=== PATIENT | male | born 1980 | race Caucasian/White ===

== ENCOUNTER 2018-01-12 09:07 | Emergency (ER) | payer MEDICAID, SELFPAY ==
[2018-01-12 09:18] VITALS: BP 153/91; PULSE 79; RESP 16; TEMP 37; O2SAT 97
--- NOTE | 2018-01-12 09:33 | W.ED.GENAD ---
Discharge Plan Disposition Patient Disposition: HOME Condition: Good Discharge Details Chief Complaint: Orthopedic Clinical Impression: Pain in right knee ED Provider: Flavio Grullon Home Meds and New Rx's Prescriptions: Continue citalopram 20 mg Tablet 20 mg PO BID RF: 0 lamotrigine 100 mg Tablet 100 mg PO DAILY RF: 0 Arpiprazole 20 mg PO DAILY RF: 0 lamotrigine 150 mg Tablet 150 mg PO .QHS RF: 0 Discharge Instructions Instructions: Knee Pain (ED), RICE Therapy (ED) Additional Instructions: For discomfort you may take 650 mg of acetaminophen and 600 mg of ibuprofen in combination every 6 hours as needed for discomfort. Please rest the extremity over the next 24-48 hours and then slowly advance activity as tolerated. Please wear the hinged knee brace during activity over the next 2 weeks but you may take it off at times of rest or for sleep. If not improving over the next 2 weeks please call orthopedist for reassessment Referrals: Ap Maynard MD [ [facility] STAFF PHYSICIAN] - Aris Staley MD [ [facility] STAFF PHYSICIAN] - Jesus Hutchison MD [ [facility] STAFF PHYSICIAN] - Medical Decision Making Patient presenting to the emergency department with chief complaint of right knee pain. Patient states that he had been helping a friend clean and had been bent on his knees quite a bit when he noticed his right knee starting to hurt. Patient does state previous meniscal injury with continuous clicking of his right knee. Physical exam shows medial joint line tenderness and pain with valgus stress test and only mild tenderness to rotation medially with Apley's test otherwise exam is unremarkable and patient denies any injury or trauma. Patient is ambulatory without significant gait disturbance I do not feel that radiological imaging of the knee is required. I feel that this knee pain is caused from previous meniscal injury and recent aggravation due to deep bending. Patient was placed in a hinged knee brace and informed on [id number] pain therapy use as he states that he has been improving over the last 24 hours just using acetaminophen. Patient was informed to call orthopedic office if not improving over the next 2 weeks for reassessment and further imaging if required. After discussion of diagnosis and plan of care patient has no further needs, questions, or concerns and states clear understanding to return to the emergency department for any worsening symptoms. HPI General Mode of arrival: ambulatory. Date/Time Provider Initiated Documentation: 01/12/18 09:23. Limitations to Documentation: no limitations. Information obtained by: patient. History of Present Illness 37 year old M presents to the emergency department with the chief complaint of Right knee pain, described as mild, with intensity rated at 4. Quality is described as aching, and is localized to the right and lower extremity. Patient reports no radiation. Patient started experiencing this day(s) (5) and it has been constant (but improving). Rest improves symptom(s), Movement worsens symptoms . Patient notes no other symptoms.. Patient did receive the following treatments prior to arrival, other (Acetaminophen) Related Data Home Medications Medication Instructions Recorded Confirmed Arpiprazole 20 mg PO DAILY 01/12/18 citalopram 20 mg PO BID 01/12/18 01/12/18 lamotrigine 100 mg PO DAILY 01/12/18 01/12/18 lamotrigine 150 mg PO .QHS 01/12/18 01/12/18 Allergies Allergy/AdvReac Type Severity Reaction Status Date / Time No Known Allergies Allergy Unverified 01/12/18 09:20 General Stated Complaint: Orthopedic BRISEIDA: 4 Review of Systems Constitutional Denies frequent falls Cardiovascular Denies syncope Musculoskeletal Reports as per HPI, Denies numbness and Denies tingling Neurologic Denies syncope, Denies frequent falls, Denies numbness and Denies tingling PFSH Social History Smoking/Tobacco Use Status: Never Surgical History H/O lateral meniscus repair of right knee (Acute) Exam Const General: cooperative, healthy appearing and no acute distress Orientation: alert, awake and oriented x3 Resp Effort & Inspection: normal respiratory effort and able to speak in complete sentences Cardio Rate: regular rate Rhythm: regular rhythm Extrem Right lower extremity: hip/thigh Details: normal to inspection, knee Details: normal to inspection, tenderness Location: of the medial joint line, normal ROM, knee ligament exam abnormal Details: valgus stress test normal Details: pain noted and varus stress test normal Details: laxity noted; no pain with axial loading and Carlos's test abnormal and Apley's Test Details: positive (With pain elicited to medial aspect); no ecchymosis and no unusual warmth and lower leg Details: normal to inspection Left lower extremity: normal to inspection Course Vital Signs Temperature 37 C 01/12/18 09:18 Pulse 79 01/12/18 09:18 Respiratory Rate 16 01/12/18 09:18 Blood Pressure 153/91 H 01/12/18 09:18 Pulse Oximetry 97 01/12/18 09:18 Temperature 37 C 01/12/18 09:18 Temperature Source Skin 01/12/18 09:18 Pulse 79 01/12/18 09:18 Respiratory Rate 16 01/12/18 09:18 Respiratory Effort 01/12/18 09:18 Blood Pressure 153/91 H 01/12/18 09:18 Blood Pressure Position Sitting 01/12/18 09:18 Pulse Oximetry 97 01/12/18 09:18 Oxygen Delivery Method Room Air 01/12/18 09:18 Oxygen Flow Rate 0 01/12/18 09:18 Pain Level 5 01/12/18 09:18
--- NOTE | 2018-01-12 09:42 | ED.GENADUL_ITS ---
Discharge Plan Disposition Patient Disposition: HOME Condition: Good Discharge Details Chief Complaint: Orthopedic Clinical Impression: Pain in right knee ED Provider: Flavio Grullon Home Meds and New Rx's Prescriptions: Continue citalopram 20 mg Tablet 20 mg PO BID RF: 0 lamotrigine 100 mg Tablet 100 mg PO DAILY RF: 0 Arpiprazole 20 mg PO DAILY RF: 0 lamotrigine 150 mg Tablet 150 mg PO .QHS RF: 0 Discharge Instructions Instructions: Knee Pain (ED), RICE Therapy (ED) Additional Instructions: For discomfort you may take 650 mg of acetaminophen and 600 mg of ibuprofen in combination every 6 hours as needed for discomfort. Please rest the extremity over the next 24-48 hours and then slowly advance activity as tolerated. Please wear the hinged knee brace during activity over the next 2 weeks but you may take it off at times of rest or for sleep. If not improving over the next 2 weeks please call orthopedist for reassessment Referrals: Ap Maynard MD [ [facility] STAFF PHYSICIAN] - Aris Staley MD [ [facility] STAFF PHYSICIAN] - Jesus Hutchison MD [ [facility] STAFF PHYSICIAN] - Medical Decision Making Patient presenting to the emergency department with chief complaint of right knee pain. Patient states that he had been helping a friend clean and had been bent on his knees quite a bit when he noticed his right knee starting to hurt. Patient does state previous meniscal injury with continuous clicking of his right knee. Physical exam shows medial joint line tenderness and pain with valgus stress test and only mild tenderness to rotation medially with Apley's test otherwise exam is unremarkable and patient denies any injury or trauma. Patient is ambulatory without significant gait disturbance I do not feel that radiological imaging of the knee is required. I feel that this knee pain is caused from previous meniscal injury and recent aggravation due to deep bending. Patient was placed in a hinged knee brace and informed on over-the- counter pain therapy use as he states that he has been improving over the last 24 hours just using acetaminophen. Patient was informed to call orthopedic office if not improving over the next 2 weeks for reassessment and further imaging if required. After discussion of diagnosis and plan of care patient has no further needs, questions, or concerns and states clear understanding to return to the emergency department for any worsening symptoms. HPI General Mode of arrival: ambulatory . Date/Time Provider Initiated Documentation: 01/12/18 09:23 . Limitations to Documentation: no limitations . Information obtained by: patient . History of Present Illness 37 year old M presents to the emergency department with the chief complaint of Right knee pain, described as mild, with intensity rated at 4. Quality is described as aching, and is localized to the right and lower extremity. Patient reports no radiation. Patient started experiencing this day(s) (5) and it has been constant (but improving). Rest improves symptom(s), Movement worsens symptoms . Patient notes no other symptoms.. Patient did receive the following treatments prior to arrival, other (Acetaminophen) Related Data Home Medications Medication Instructions Recorded Confirmed Arpiprazole 20 mg PO DAILY 01/12/18 citalopram 20 mg PO BID 01/12/18 01/12/18 lamotrigine 100 mg PO DAILY 01/12/18 01/12/18 lamotrigine 150 mg PO .QHS 01/12/18 01/12/18 Allergies Allergy/AdvReac Type Severity Reaction Status Date / Time No Known Allergies Allergy Unverified 01/12/18 09:20 General Stated Complaint: Orthopedic BRISEIDA: 4 Review of Systems Constitutional Denies frequent falls Cardiovascular Denies syncope Musculoskeletal Reports as per HPI, Denies numbness and Denies tingling Neurologic Denies syncope, Denies frequent falls, Denies numbness and Denies tingling PFSH Social History Smoking/Tobacco Use Status: Never Surgical History H/O lateral meniscus repair of right knee (Acute) Exam Const General: cooperative, healthy appearing and no acute distress Orientation: alert, awake and oriented x3 Resp Effort & Inspection: normal respiratory effort and able to speak in complete sentences Cardio Rate: regular rate Rhythm: regular rhythm Extrem Right lower extremity: hip/thigh Details: normal to inspection, knee Details: normal to inspection, tenderness Location: of the medial joint line, normal ROM , knee ligament exam abnormal Details: valgus stress test normal Details: pain noted and varus stress test normal Details: laxity noted; no pain with axial loading and Carlos's test abnormal and Apley's Test Details: positive (With pain elicited to medial aspect); no ecchymosis and no unusual warmth and lower leg Details: normal to inspection Left lower extremity: normal to inspection Course Vital Signs Temperature 37 C 01/12/18 09:18 Pulse 79 01/12/18 09:18 Respiratory Rate 16 01/12/18 09:18 Blood Pressure 153/91 H 01/12/18 09:18 Pulse Oximetry 97 01/12/18 09:18 Temperature 37 C 01/12/18 09:18 Temperature Source Skin 01/12/18 09:18 Pulse 79 01/12/18 09:18 Respiratory Rate 16 01/12/18 09:18 Respiratory Effort 01/12/18 09:18 Blood Pressure 153/91 H 01/12/18 09:18 Blood Pressure Position Sitting 01/12/18 09:18 Pulse Oximetry 97 01/12/18 09:18 Oxygen Delivery Method Room Air 01/12/18 09:18 Oxygen Flow Rate 0 01/12/18 09:18 Pain Level 5 01/12/18 09:18
== END 2018-01-12 10:11 | disposition home or self-care (01) ==
LOC: ER 10:15
PROVIDERS: Emergency Provider Nurse Practitioner Family
DX: M25.561 Pain in right knee (principal); X50.3XXA Overexertion from repetitive movements, initial encounter
CPT/HCPCS: 29505; 99283; L1810

== ENCOUNTER 2018-02-02 08:05 | Outpatient (CLI) | payer MEDICAID, SELFPAY ==
[2018-02-02 09:02] LABS: Anion Gap 11.2 mmol/L (3-11); BUN 15 mg/dL (7-18); CO2 26.8 mmol/L (21.0-32.0); CREATININE 1.14 mg/dL (0.70-1.30); Calcium 9.2 mg/dL (8.5-10.1); Chloride 104 mmol/L (98-107); Cholesterol 252 mg/dL (50-200); Glucose 99 mg/dL (70-100); HDL Cholesterol 36 mg/dL (40-60); LDL CHOLESTEROL 138 mg/dL (<100); Potassium 4.1 mmol/L (3.5-5.1); Sodium 142 mmol/L (136-145); Triglyceride 423 mg/dL (30-150)
== END 2018-02-02 08:25 ==
PROVIDERS: Visit Provider Psychiatry & Neurology Psychiatry
DX: F31.9 Bipolar disorder, unspecified (principal); Z79.899 Other long term (current) drug therapy
CPT/HCPCS: 36415; 80048; 80061; 83721

== ENCOUNTER 2018-02-04 06:56 | Emergency (ER) | payer MEDICAID, SELFPAY ==
[2018-02-04 07:01] VITALS: BP 134/92; PULSE 93; RESP 18; TEMP 36.6; O2SAT 96
--- NOTE | 2018-02-04 07:32 | W.ED.GENAD ---
Discharge Plan Disposition Patient Disposition: HOME Condition: Good Discharge Details Chief Complaint: Orthopedic Clinical Impression: Pain in right knee Primary Care Provider: None,None ED Provider: Frank Cristobal Meds and New Rx's Prescriptions: New naproxen 500 mg tablet 500 mg PO BID PRN (Reason: pain) Qty: 20 RF: 0 Continue citalopram 20 mg Tablet 20 mg PO BID RF: 0 lamotrigine 100 mg Tablet 100 mg PO DAILY RF: 0 Arpiprazole 20 mg PO DAILY RF: 0 lamotrigine 150 mg Tablet 150 mg PO .QHS RF: 0 Discharge Instructions Additional Instructions: You will need to follow-up with orthopedics for further evaluation of your knee pain. An MRI cannot be ordered from the ED. Continue to wear knee brace. Continue to use ice. May try Naprosyn for the pain. Return to ED for fever, acute injury, neurologic changes. Referrals: [facility] [Provider Group] Medical Decision Making Patient returns with continued right knee pain. Explained to patient that he needs to follow-up with orthopedics for further evaluation. MRI cannot be ordered from the ED. Does not need plain films. He remains neurovascularly intact. He is requesting prescription for Naprosyn as it has worked better for him in the past. States he will follow-up with orthopedic as told previously. Medical Records Medical records reviewed: Yes I reviewed the patient's medical records. HPI General Mode of arrival: ambulatory. Date/Time Provider Initiated Documentation: 02/04/18 07:30. Limitations to Documentation: no limitations. Information obtained by: patient. HPI Narrative: Patient returns with continued right knee pain. He was seen here 2 weeks ago for same. He was told to follow-up with orthopedics which he did not. He returns here hoping to get his MRI. There is no new injury. He is not been using the knee brace but is using the knee sleeve. He is been using [id number] medication with minimal relief. He denies any numbness or tingling distally. Related Data Home Medications Medication Instructions Recorded Confirmed Arpiprazole 20 mg PO DAILY 01/12/18 02/04/18 citalopram 20 mg PO BID 01/12/18 02/04/18 lamotrigine 100 mg PO DAILY 01/12/18 02/04/18 lamotrigine 150 mg PO .QHS 01/12/18 02/04/18 naproxen 500 mg PO BID PRN #20 tab 02/04/18 Previous Rx's Medication Instructions Recorded naproxen 500 mg PO BID PRN #20 tab 02/04/18 Allergies Allergy/AdvReac Type Severity Reaction Status Date / Time No Known Allergies Allergy Unverified 02/04/18 07:06 General Stated Complaint: Orthopedic BRISEIDA: 5 Review of Systems Constitutional Denies fever(s) and Denies weakness Musculoskeletal Reports arthralgias, Reports joint swelling, Denies numbness, Reports stiffness and Denies tingling Integumentary/Breasts Denies erythema Neurologic Denies numbness, Denies tingling, Denies paresthesias and Denies weakness PFSH Bipolar disorder (Chronic) S/P appendectomy (Inactive) H/O lateral meniscus repair of right knee (Inactive) Social History Smoking/Tobacco Use Status: Never Exam Const General: cooperative and comfortable Orientation: alert and oriented x3 Skin General skin exam: no ecchymosis and no erythema Neuro General: alert, oriented x3 and no focal motor deficits Sensory Exam: no sensory deficits noted Extrem General: normal exam except as noted Right lower extremity: knee Details: tenderness Location: of the medial joint line, swelling, normal ROM and knee ligament exam normal Course Vital Signs Temperature 97.9 F 02/04/18 07:01 Pulse 93 H 02/04/18 07:01 Respiratory Rate 18 02/04/18 07:01 Blood Pressure 134/92 H 02/04/18 07:01 Pulse Oximetry 96 02/04/18 07:01 Temperature 97.9 F 02/04/18 07:01 Temperature Source Skin 02/04/18 07:01 Pulse 93 H 02/04/18 07:01 Respiratory Rate 18 02/04/18 07:01 Respiratory Effort 02/04/18 07:04 Blood Pressure 134/92 H 02/04/18 07:01 Blood Pressure Position Sitting 02/04/18 07:01 Pulse Oximetry 96 02/04/18 07:01 Pain Level 8 02/04/18 07:04 Comment 02/04/18 07:01
--- NOTE | 2018-02-04 07:43 | ED.GENADUL_ITS ---
Discharge Plan Disposition Patient Disposition: HOME Condition: Good Discharge Details Chief Complaint: Orthopedic Clinical Impression: Pain in right knee Primary Care Provider: None,None ED Provider: Frank Cristobal Meds and New Rx's Prescriptions: New naproxen 500 mg tablet 500 mg PO BID PRN (Reason: pain) Qty: 20 RF: 0 Continue citalopram 20 mg Tablet 20 mg PO BID RF: 0 lamotrigine 100 mg Tablet 100 mg PO DAILY RF: 0 Arpiprazole 20 mg PO DAILY RF: 0 lamotrigine 150 mg Tablet 150 mg PO .QHS RF: 0 Discharge Instructions Additional Instructions: You will need to follow-up with orthopedics for further evaluation of your knee pain. An MRI cannot be ordered from the ED. Continue to wear knee brace. Continue to use ice. May try Naprosyn for the pain. Return to ED for fever, acute injury, neurologic changes. Referrals: [facility] [Provider Group] Medical Decision Making Patient returns with continued right knee pain. Explained to patient that he needs to follow-up with orthopedics for further evaluation. MRI cannot be ordered from the ED. Does not need plain films. He remains neurovascularly intact. He is requesting prescription for Naprosyn as it has worked better for him in the past. States he will follow-up with orthopedic as told previously. Medical Records Medical records reviewed: Yes I reviewed the patient's medical records. HPI General Mode of arrival: ambulatory . Date/Time Provider Initiated Documentation: 02/04/18 07:30 . Limitations to Documentation: no limitations . Information obtained by: patient . HPI Narrative: Patient returns with continued right knee pain. He was seen here 2 weeks ago for same. He was told to follow-up with orthopedics which he did not. He returns here hoping to get his MRI. There is no new injury. He is not been using the knee brace but is using the knee sleeve. He is been using [id number] medication with minimal relief. He denies any numbness or tingling distally. Related Data Home Medications Medication Instructions Recorded Confirmed Arpiprazole 20 mg PO DAILY 01/12/18 02/04/18 citalopram 20 mg PO BID 01/12/18 02/04/18 lamotrigine 100 mg PO DAILY 01/12/18 02/04/18 lamotrigine 150 mg PO .QHS 01/12/18 02/04/18 naproxen 500 mg PO BID PRN #20 tab 02/04/18 Previous Rx's Medication Instructions Recorded naproxen 500 mg PO BID PRN #20 tab 02/04/18 Allergies Allergy/AdvReac Type Severity Reaction Status Date / Time No Known Allergies Allergy Unverified 02/04/18 07:06 General Stated Complaint: Orthopedic BRISEIDA: 5 Review of Systems Constitutional Denies fever(s) and Denies weakness Musculoskeletal Reports arthralgias, Reports joint swelling, Denies numbness, Reports stiffness and Denies tingling Integumentary/Breasts Denies erythema Neurologic Denies numbness, Denies tingling, Denies paresthesias and Denies weakness PFSH Bipolar disorder (Chronic) S/P appendectomy (Inactive) H/O lateral meniscus repair of right knee (Inactive) Social History Smoking/Tobacco Use Status: Never Exam Const General: cooperative and comfortable Orientation: alert and oriented x3 Skin General skin exam: no ecchymosis and no erythema Neuro General: alert, oriented x3 and no focal motor deficits Sensory Exam: no sensory deficits noted Extrem General: normal exam except as noted Right lower extremity: knee Details: tenderness Location: of the medial joint line, swelling, normal ROM and knee ligament exam normal Course Vital Signs Temperature 97.9 F 02/04/18 07:01 Pulse 93 H 02/04/18 07:01 Respiratory Rate 18 02/04/18 07:01 Blood Pressure 134/92 H 02/04/18 07:01 Pulse Oximetry 96 02/04/18 07:01 Temperature 97.9 F 02/04/18 07:01 Temperature Source Skin 02/04/18 07:01 Pulse 93 H 02/04/18 07:01 Respiratory Rate 18 02/04/18 07:01 Respiratory Effort 02/04/18 07:04 Blood Pressure 134/92 H 02/04/18 07:01 Blood Pressure Position Sitting 02/04/18 07:01 Pulse Oximetry 96 02/04/18 07:01 Pain Level 8 02/04/18 07:04 Comment 02/04/18 07:01
== END 2018-02-04 07:48 | disposition home or self-care (01) ==
PROVIDERS: Emergency Provider Emergency Medicine
DX: M25.561 Pain in right knee (principal)
CPT/HCPCS: 99282

== ENCOUNTER 2018-02-12 11:40 | Outpatient (CLI) | payer MEDICAID, SELFPAY ==
--- NOTE | 2018-02-12 11:25 | DI.RAD_ITS ---
SYMPTOM/DIAGNOSIS: RT KNEE PAIN RIGHT KNEE: Two views. No priors. Mild periarticular spurring is seen at the posterior patella and the medial femoral tibial joint. There is also mild narrowing of the medial femoral tibial joint. The bones appear intact and normally mineralized. There is a well corticated ossific density at the anterior tibial tuberosity consistent with an old injury. The soft tissues are unremarkable. IMPRESSION: Mild degenerative changes of the right knee.
== END 2018-02-12 12:00 ==
PROVIDERS: Visit Provider Physician Assistant
DX: M25.561 Pain in right knee (principal); M17.11 Unilateral primary osteoarthritis, right knee
CPT/HCPCS: 73560

== ENCOUNTER 2018-03-09 15:50 | Emergency (ER) | payer MEDICAID, SELFPAY ==
[2018-03-09 15:57] VITALS: BP 115/74; PULSE 94; RESP 16; TEMP 37; O2SAT 97
--- NOTE | 2018-03-09 16:04 | W.ED.GENAD ---
Discharge Plan Disposition Patient Disposition: HOME Condition: Fair Discharge Details Chief Complaint: EyeProblem Clinical Impression: Conjunctivitis Primary Care Provider: Aubrey Ortega ED Provider: Katty Goyal Home Meds and New Rx's Prescriptions: Continued citalopram 20 mg Tablet 20 mg PO BID RF: 0 lamotrigine 100 mg Tablet 100 mg PO DAILY RF: 0 Arpiprazole 20 mg PO DAILY RF: 0 lamotrigine 150 mg Tablet 150 mg PO .QHS RF: 0 naproxen 500 mg tablet 500 mg PO BID PRN (Reason: pain) Qty: 20 RF: 0 Discharge Instructions Instructions: Conjunctivitis (ED) Additional Instructions: Wash hands frequently. Erythromycin ointment to the right eye 1/2 inch to right eye four times per day for the next 5 days. If you develop fevers/chills, increased pain, visual changes or other new/worsening symptoms please seek care urgently once again. If not improving over the next week please follow up with primary care or ophthalmology. Referrals: Aubrey Ortega [Primary Care Provider] - Medical Decision Making Patient presents iwth right eye irritation starting this AM. No pain. Exam concerning for bacterial conjunctivitis with injection, thick yellow discharge. Exam otherwise benign, EOM intact without discomfort, pupils equal, round and reactive. Discussed cocern with the patient. Will place on erythromycin ointment. Instructions on application was discussed. We discussed new/worsening sytmpsom and when to seek care urgently once again. All of his questions and cocnerns were addressed, he is in agreement with this plan. HPI General Mode of arrival: ambulatory. Date/Time Provider Initiated Documentation: 03/09/18 15:58. Limitations to Documentation: no limitations. Information obtained by: patient. HPI Narrative: Patient is a 37 year old male presenting today with c/c of right eye redness, discharge and irritation. Reports he awoke with symptoms this morning. Uses corrective lenses, no contacts. Denies visual changes. No pain in the eye. Endorses runny nose and mild URI symptoms as well. No SOB. Related Data Home Medications Medication Instructions Recorded Confirmed Arpiprazole 20 mg PO DAILY 01/12/18 03/09/18 citalopram 20 mg PO BID 01/12/18 03/09/18 lamotrigine 100 mg PO DAILY 01/12/18 03/09/18 lamotrigine 150 mg PO .QHS 01/12/18 03/09/18 naproxen 500 mg PO BID PRN #20 tab 02/04/18 03/09/18 Previous Rx's Medication Instructions Recorded naproxen 500 mg PO BID PRN #20 tab 02/04/18 Allergies Allergy/AdvReac Type Severity Reaction Status Date / Time No Known Allergies Allergy Verified 03/09/18 15:59 General Stated Complaint: EyeProblem BRISEIDA: 4 Review of Systems Constitutional Reports as per HPI and Denies headache(s) Eyes Reports as per HPI, Denies blurry vision, Denies change in vision, Reports eye discharge, Reports irritation, Reports itchy eyes, Denies loss of vision, Denies eye pain, Reports requires corrective lenses and Denies photophobia ENT Reports as per HPI and Denies headache(s) Cardiovascular Reports as per HPI, Denies chest pain and Denies dyspnea Respiratory Reports as per HPI, Reports cough (mild, nonproductive) and Denies dyspnea Gastrointestinal Reports as per HPI, Denies abdominal pain, Denies change in bowel habits, Denies nausea and Denies vomiting Integumentary/Breasts Reports as per HPI and Denies rash Neurologic Denies headache(s) and Denies loss of vision Allergic/Immunologic Reports itchy eyes [facility] Medical History Bipolar disorder (Chronic) Surgical History H/O lateral meniscus repair of right knee (Inactive) S/P appendectomy (Inactive) Social History Smoking/Tobacco Use Status: Never Exam Const General: cooperative, healthy appearing, comfortable, no acute distress, well developed and well groomed Nutritional Appearance: average body habitus and well nourished Orientation: alert and awake [facility] Head: normal to inspection, normocephalic and atraumatic Ears: hearing grossly normal bilaterally, external ears normal and TM's normal bilaterally General nose exam: external nose normal and nares normal Face and sinus: normal facial exam, sinuses nontender and face symmetric Mouth: oral mucosae normal, lip normal, tongue normal, oropharynx normal and moist mucous membranes Teeth and gingiva: dentition normal Throat: posterior oropharynx normal, tonsils normal and uvula midline Eyes Alignment and Position: alignment normal Periorbital: periorbital findings normal Eyelids: eyelids normal Conjunctivae: conjunctival abnormality (right is injected with thick yellow discharge noted) Pupils: PERRL EOM: EOM intact bilaterally Neck Neck: normal visual inspection, full ROM, no lymphadenopathy and no meningeal signs Resp Effort & Inspection: normal respiratory effort, able to speak in complete sentences and no respiratory distress Auscultation: clear to auscultation bilaterally, no rales, no rhonchi and no wheezes Cardio Rate: regular rate Rhythm: regular rhythm Heart Sounds: S1 normal and S2 normal Skin General skin exam: no rashes or lesions noted Neuro General: alert and awake Cognition: normal cognition Speech: speech normal Gait: normal gait Psych Appearance: grossly normal and well kempt Mental Status: mental status grossly normal Speech and Movement: speech and movement normal Course Vital Signs Temperature 37 C 03/09/18 15:57 Pulse 94 H 03/09/18 15:57 Respiratory Rate 16 03/09/18 15:57 Blood Pressure 115/74 03/09/18 15:57 Pulse Oximetry 97 03/09/18 15:57 Temperature 37 C 03/09/18 15:57 Temperature Source Skin 03/09/18 15:57 Pulse 94 H 03/09/18 15:57 Respiratory Rate 16 03/09/18 15:57 Blood Pressure 115/74 03/09/18 15:57 Blood Pressure Position Sitting 03/09/18 15:57 Pulse Oximetry 97 03/09/18 15:57 Oxygen Delivery Method Room Air 03/09/18 15:57 Oxygen Flow Rate 0 03/09/18 15:57 Pain Level 0 03/09/18 15:57
--- NOTE | 2018-03-09 16:09 | ED.GENADUL_ITS ---
Discharge Plan Disposition Patient Disposition: HOME Condition: Fair Discharge Details Chief Complaint: EyeProblem Clinical Impression: Conjunctivitis Primary Care Provider: Aubrey Ortega ED Provider: Katty Goyal Home Meds and New Rx's Prescriptions: Continued citalopram 20 mg Tablet 20 mg PO BID RF: 0 lamotrigine 100 mg Tablet 100 mg PO DAILY RF: 0 Arpiprazole 20 mg PO DAILY RF: 0 lamotrigine 150 mg Tablet 150 mg PO .QHS RF: 0 naproxen 500 mg tablet 500 mg PO BID PRN (Reason: pain) Qty: 20 RF: 0 Discharge Instructions Instructions: Conjunctivitis (ED) Additional Instructions: Wash hands frequently. Erythromycin ointment to the right eye 1/2 inch to right eye four times per day for the next 5 days. If you develop fevers/chills, increased pain, visual changes or other new/worsening symptoms please seek care urgently once again. If not improving over the next week please follow up with primary care or ophthalmology. Referrals: Aubrey Ortega [Primary Care Provider] - Medical Decision Making Patient presents iwth right eye irritation starting this AM. No pain. Exam concerning for bacterial conjunctivitis with injection, thick yellow discharge. Exam otherwise benign, EOM intact without discomfort, pupils equal, round and reactive. Discussed cocern with the patient. Will place on erythromycin ointment. Instructions on application was discussed. We discussed new/worsening sytmpsom and when to seek care urgently once again. All of his questions and cocnerns were addressed, he is in agreement with this plan. HPI General Mode of arrival: ambulatory . Date/Time Provider Initiated Documentation: 03/09/18 15:58 . Limitations to Documentation: no limitations . Information obtained by: patient . HPI Narrative: Patient is a 37 year old male presenting today with c/c of right eye redness, discharge and irritation. Reports he awoke with symptoms this morning. Uses corrective lenses, no contacts . Denies visual changes. No pain in the eye. Endorses runny nose and mild URI symptoms as well. No SOB. Related Data Home Medications Medication Instructions Recorded Confirmed Arpiprazole 20 mg PO DAILY 01/12/18 03/09/18 citalopram 20 mg PO BID 01/12/18 03/09/18 lamotrigine 100 mg PO DAILY 01/12/18 03/09/18 lamotrigine 150 mg PO .QHS 01/12/18 03/09/18 naproxen 500 mg PO BID PRN #20 tab 02/04/18 03/09/18 Previous Rx's Medication Instructions Recorded naproxen 500 mg PO BID PRN #20 tab 02/04/18 Allergies Allergy/AdvReac Type Severity Reaction Status Date / Time No Known Allergies Allergy Verified 03/09/18 15:59 General Stated Complaint: EyeProblem BRISEIDA: 4 Review of Systems Constitutional Reports as per HPI and Denies headache(s) Eyes Reports as per HPI, Denies blurry vision, Denies change in vision, Reports eye discharge, Reports irritation, Reports itchy eyes, Denies loss of vision, Denies eye pain, Reports requires corrective lenses and Denies photophobia ENT Reports as per HPI and Denies headache(s) Cardiovascular Reports as per HPI, Denies chest pain and Denies dyspnea Respiratory Reports as per HPI, Reports cough (mild, nonproductive) and Denies dyspnea Gastrointestinal Reports as per HPI, Denies abdominal pain, Denies change in bowel habits, Denies nausea and Denies vomiting Integumentary/Breasts Reports as per HPI and Denies rash Neurologic Denies headache(s) and Denies loss of vision Allergic/Immunologic Reports itchy eyes [facility] Medical History Bipolar disorder (Chronic) Surgical History H/O lateral meniscus repair of right knee (Inactive) S/P appendectomy (Inactive) Social History Smoking/Tobacco Use Status: Never Exam Const General: cooperative, healthy appearing, comfortable, no acute distress, well developed and well groomed Nutritional Appearance: average body habitus and well nourished Orientation: alert and awake [facility] Head: normal to inspection, normocephalic and atraumatic Ears: hearing grossly normal bilaterally, external ears normal and TM's normal bilaterally General nose exam: external nose normal and nares normal Face and sinus: normal facial exam, sinuses nontender and face symmetric Mouth: oral mucosae normal, lip normal, tongue normal, oropharynx normal and moist mucous membranes Teeth and gingiva: dentition normal Throat: posterior oropharynx normal, tonsils normal and uvula midline Eyes Alignment and Position: alignment normal Periorbital: periorbital findings normal Eyelids: eyelids normal Conjunctivae: conjunctival abnormality (right is injected with thick yellow discharge noted) Pupils: PERRL EOM: EOM intact bilaterally Neck Neck: normal visual inspection, full ROM, no lymphadenopathy and no meningeal signs Resp Effort & Inspection: normal respiratory effort, able to speak in complete sentences and no respiratory distress Auscultation: clear to auscultation bilaterally, no rales, no rhonchi and no wheezes Cardio Rate: regular rate Rhythm: regular rhythm Heart Sounds: S1 normal and S2 normal Skin General skin exam: no rashes or lesions noted Neuro General: alert and awake Cognition: normal cognition Speech: speech normal Gait: normal gait Psych Appearance: grossly normal and well kempt Mental Status: mental status grossly normal Speech and Movement: speech and movement normal Course Vital Signs Temperature 37 C 03/09/18 15:57 Pulse 94 H 03/09/18 15:57 Respiratory Rate 16 03/09/18 15:57 Blood Pressure 115/74 03/09/18 15:57 Pulse Oximetry 97 03/09/18 15:57 Temperature 37 C 03/09/18 15:57 Temperature Source Skin 03/09/18 15:57 Pulse 94 H 03/09/18 15:57 Respiratory Rate 16 03/09/18 15:57 Blood Pressure 115/74 03/09/18 15:57 Blood Pressure Position Sitting 03/09/18 15:57 Pulse Oximetry 97 03/09/18 15:57 Oxygen Delivery Method Room Air 03/09/18 15:57 Oxygen Flow Rate 0 03/09/18 15:57 Pain Level 0 03/09/18 15:57
[2018-03-09] MEDS: Erythromycin Ophth Oint 3.5 GM TUBE OD (16:30)
== END 2018-03-09 16:53 | disposition home or self-care (01) ==
LOC: ER 16:14
PROVIDERS: Emergency Provider Physician Assistant; PCP Specialist/Technologist Athletic Trainer
DX: H10.31 Unspecified acute conjunctivitis, right eye (principal)
CPT/HCPCS: 99283

== ENCOUNTER 2018-03-11 21:05 | Outpatient (REF) | payer MEDICAID, SELFPAY ==
[2018-03-11 21:32] LABS: Abs Immature Grans 0.02 k/cumm (0.0-0.09); Absolute Basophil Count 0.01 k/cumm (0.0-0.2); Absolute Eosinophil Count 0.17 k/cumm (0.0-0.7); Absolute Lymphocyte Count 2.26 k/cumm (1.2-3.4); Absolute Monocyte Count 0.52 k/cumm (0.11-0.7); Absolute Neutrophil Count 3.57 k/cumm (1.2-6.7); Basophils % 0.2; Eosinophils % 2.6; HCT 41.5 % (40.0-50.0); HGB 14.2 g/dL (13.5-17.5); Immature Grans % 0.3; Lymphocytes % 34.5; Mean Corp. HGB Concentration 34.2 g/dL (32.0-36.0); Mean Corpuscular Hemoglobin 30.8 pg (27.0-33.0); Mean Platelet Volume 8.9 fL (8.0-11.0); Monocytes % 7.9; Neutrophils % 54.5; Platelet Count 358 x1000/uL (130-400); RBC 4.61 m/cumm (4.50-6.00); RBC Distribution Width 13.3 % (11.8-14.1); White Blood Cell Count 6.55 k/cumm (4.4-10.8)
[2018-03-11 21:53] LABS: ALT 87 U/L (12-78); AST 38 U/L (15-37); Albumin 4.4 g/dL (3.4-5.0); Alkaline Phosphatase 94 U/L (46-116); Anion Gap 12.5 mmol/L (3-11); BUN 19 mg/dL (7-18); Bilirubin, Total 0.3 mg/dL (0.2-1.0); CO2 25.5 mmol/L (21.0-32.0); CREATININE 1.06 mg/dL (0.70-1.30); Calcium 9.4 mg/dL (8.5-10.1); Chloride 103 mmol/L (98-107); Cholesterol 232 mg/dL (50-200); Glucose 89 mg/dL (70-100); HDL Cholesterol 37 mg/dL (40-60); LDL CHOLESTEROL 149 mg/dL (<100); Potassium 4.4 mmol/L (3.5-5.1); Sodium 141 mmol/L (136-145); TSH (W/Ref FT4) 1.83 uIU/mL (0.358-3.74); Total Protein 7.7 g/dL (6.4-8.2); Triglyceride 263 mg/dL (30-150)
[2018-03-13 16:23] LABS: Lamotrigine 1.9 mcg/mL (2.5 - 15.0)
== END 2018-03-11 21:25 ==
LOC: NCHCN 21:05
PROVIDERS: PCP Specialist/Technologist Athletic Trainer; Visit Provider Specialist/Technologist Athletic Trainer
DX: F31.9 Bipolar disorder, unspecified (principal); Z51.81 Encounter for therapeutic drug level monitoring; Z79.899 Other long term (current) drug therapy; Z13.29 Encounter for screening for other suspected endocrine disorder; Z13.228 Encounter for screening for other metabolic disorders; Z13.220 Encounter for screening for lipoid disorders
CPT/HCPCS: 80053; 80061; 80175; 83721; 84443; 85025